=== PATIENT | male | born 1995 | race Caucasian/White ===

== ENCOUNTER 2018-07-13 18:27 | Emergency (ER) | payer BC ==
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
[2018-07-13] MEDS: OXYCODONE-ACETAMINOPHEN 5-325 MG TABLET PO ONE (19:30)
[2018-07-14] MEDS: OXYCODONE HCL IR 5 MG TABLET PO ONE (00:08)
[2018-07-14] MEDS: DOXYCYCLINE HYCLATE 100 MG TABLET PO ONE (00:09)
[2018-07-14] MEDS: DIPH/PERTUSS(ACELL)/TETANUS VAC/PF 0.5 ML SYR (>=10YO) IM ONE (00:09)
[2018-07-14] MEDS: LIDOCAINE 1% INJ-PF (10 MG/ML) 30 ML SDV INJ ONE (00:10)
[2018-07-14] MEDS: LIDOCAINE 1% INJ-PF (10 MG/ML) 30 ML SDV ONE (00:11)
[2018-07-14] MEDS: HYDROCODONE/ACETAMINOPHEN 5-325 MG (6 TAB/ER DISP) PO PRN (02:06)
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
--- NOTE | 2018-07-14 02:32 | RADIOLOGY REPORT (SQ) ---
EXAM DESCRIPTION: XR WRIST 3 OR MORE VIEWS BILATERAL COMPLETED DATE/TME: 07/14/2018 01:28 CLINICAL HISTORY: 23 years, Male, pain COMPARISON: None. NUMBER OF VIEWS: 3 TECHNIQUE: 3 view right wrist LIMITATIONS: None. FINDINGS: Avulsion fracture seen on the lateral view likely reflecting a triquetral bone fracture. Associated soft tissue swelling. No dislocation. IMPRESSION: Avulsion fracture seen on the lateral view likely reflecting triquetral bone fracture. Associated soft tissue swelling copyright 2010 [employer]- All Rights Reserved
[2018-07-14 03:03] VITALS: BP 125/84
== END 2018-07-14 03:02 | disposition home or self-care (01) ==
LOC: ER 18:27
PROC: 0HQLXZZ Repair Left Lower Leg Skin, External Approach (ICD-10-PCS; principal; 2018-07-13)
PROC: 2W3CX1Z Immobilization of Right Lower Arm using Splint (ICD-10-PCS; 2018-07-13)
DX: S62.114A Nondisplaced fracture of triquetrum [cuneiform] bone, right wrist, initial encounter for closed fracture (principal); S81.812A Laceration without foreign body, left lower leg, initial encounter; W01.198A Fall on same level from slipping, tripping and stumbling with subsequent striking against other object, initial encounter
CPT/HCPCS: 90471; 90715; 99283; J3490; L3908